=== PATIENT | female | born 1940 | race Caucasian/White ===

== ENCOUNTER → 2024-04-13 09:39 | Outpatient (REF) | payer OTHER, SELFPAY | LOC: RAD 09:39 | PROVIDERS: ATTENDING PHYSICIAN Podiatrist Foot & Ankle Surgery; FAMILY PHYSICIAN Family Medicine | DX: M20.11 Hallux valgus (acquired), right foot (principal); M20.12 Hallux valgus (acquired), left foot | CPT/HCPCS: 73630 ==

== ENCOUNTER 2024-05-29 20:18 | Inpatient (IN) | payer OTHER, SELFPAY ==
[2024-05-29] VITALS (14 sets, daily range): BP systolic 96–149; BP diastolic 49–91; BMI 41.4; BMI 42.0
[2024-05-29 11:47] LABS: % Basophils 0.3 % (0-2); % Immature Granulocytes 0.4 % (0-0.5); % Lymphocytes 3.6 % (20.5-51.1); % Monocytes 8.8 % (1.7-9.3); % Neutrophils 86.9 % (42.2-75.2); Absolute Basophils 0.1 10^3/uL (0-0.2); Absolute Immature Granulocytes 0.1 10^3/uL (0-0.05); Absolute Lymphocytes 0.6 10^3/uL (1.2-3.4); Absolute Monocytes 1.4 10^3/uL (0.1-0.6); Absolute Neutrophils 14.1 10^3/uL (1.4-6.5); Hematocrit 39.2 % (37.0-47.0); Hemoglobin 12.6 g/dL (12.0-16.0); Mean Corp Hgb Conc. 32.1 g/dL (33.0-37.0); Mean Corpuscular Hgb 29.5 pg (27.0-31.0); Mean Corpuscular Volume 91.8 fL (81.0-99.0); Nucleated Red Blood Cells % 0 %; Platelet Count 256 10^3/uL (130-400); Red Blood Cell Count 4.27 10^6/uL (4.20-5.40); Red Cell Dist. Width 12.5 % (11.5-14.5); White Blood Cell Count 16.2 10^3/uL (4.8-10.8)
[2024-05-29 11:58] LABS: APTT 27.4 Sec (23.4-35.0); INR 1.13; PT 14.5 Sec (11.4-14.6)
[2024-05-29 12:01] LABS: AST (SGOT) 22 U/L (14-36); Albumin 4.4 g/dl (3.5-5.0); Alkaline Phosphatase 65 U/L (38-126); Blood Urea Nitrogen 45 mg/dl (7-17); Calcium 9.8 mg/dl (8.4-10.2); Carbon Dioxide 18 mmol/L (22-30); Chloride 108 mmol/L (98-107); Glucose 181 mg/dl (70-99); Potassium 4.8 mmol/L (3.5-5.1); Sodium 139 mmol/L (135-145); Total Bilirubin 0.7 mg/dl (0.2-1.3); Total Protein 6.9 g/dl (6.3-8.2); eGFR 21.84
[2024-05-29 13:04] LABS: ALT (SGPT) < 30 U/L (0-35)
--- NOTE | 2024-05-29 13:18 | ED.GENMED ---
History of Present Illness
General
Chief Complaint: Rectal Bleeding
Time Seen by Provider: 05/29/24 12:49
History of Present Illness
History of Present Illness:
Patient presents to the emergency department with bright red blood per rectum. States she was up all night having bloody bowel movements. She is unsure if she was also having hematuria and she states that liquid in the toilet was all red. Denies
any urinary symptoms. Endorses left flank and abdominal pain. Denies fevers. Denies bloody vomit but did have 1 episode of emesis.
Past History
Past History
ED Past Medical History: HTN
Social History
Tobacco: Non-smoker
Living: with family
Employment: Retired
Phy Exam
Physical Exam
Physical Exam:
GENERAL APPEARANCE: NAD, well developed/ well nourished, obese
EYES lids/conjunctiva normal
EARS/NOSE/THROAT Mucous membranes moist, uvula midline without oral pharyngeal erythema, exudate or swelling
HEAD/NECK normocephalic atraumatic, neck is supple.
RESPIRATORY respiratory effort normal, speaks in full sentences, no accessory muscle use. Lungs clear to auscultation without rhonchi, wheezes, rales
CARDIAC Regular rate and rhythm, no edema.
ABDOMINAL Soft, mild tenderness to left lower quadrant/left flank area. Rectal exam with trace amounts of red blood. No vaginal bleeding no blood from urethra. tech Andrea present during exam
MUSCLES/EXTREMITIES No abnormal range of motion, no swelling.
SKIN Warm, pink and dry. No rashes
NEUROLOGICAL Speech is clear and appropriate. Normal level of consciousness. 5/5 strength in all extremities.
PSYCH Normal mood and affect. Judgement/competence is appropriate
Course
Orders/Labs/Results
Orders:
Orders
05/29/24 11:33
Type+Screen Urgent
Complete Blood Count/With Diff Urgent
Comprehensive Metabolic Panel Urgent
PT/INR [Prothrombin Time] Urgent
PTT Urgent
05/29/24 13:17
0.9% Sodium Chloride 1000 ml [Nss] 1,000 ml IV BOLUS
Straight Cath As Directed
Frequency: One time now
05/29/24 13:18
Urinalysis Reflex To Culture Urgent
05/29/24 13:33
CT Abd/pel Without Iv Or Oral Urgent
Comment:
Reason For Exam: LLQ pain, rectal bleeding
05/29/24 16:22
Ampicillin/Sulbactam 3 grams IVPB NOW Ampicillin/Sulbactam 3 G [Unasyn] 3 gm 0.9% Sodium Chloride 100 ml [Nss] 100 ml IV NOW
Abnormal Lab Results
05/29/24
11:33
WBC 16.2 H 10^3/uL
(4.8-10.8)
MCHC 32.1 L g/dL
(33.0-37.0)
Abs Immat Gran (auto) 0.1 H 10^3/uL
(0-0.05)
Absolute Neuts (auto) 14.1 H 10^3/uL
(1.4-6.5)
Absolute Lymphs (auto) 0.6 L 10^3/uL
(1.2-3.4)
Absolute Monos (auto) 1.4 H 10^3/uL
(0.1-0.6)
Neutrophils % 86.9 H %
(42.2-75.2)
Lymphocytes % 3.6 L %
(20.5-51.1)
Chloride 108 H mmol/L
(98-107)
Carbon Dioxide 18 L mmol/L
(22-30)
BUN 45 H mg/dl
(7-17)
Creatinine 2.2 H mg/dL
(0.6-1.0)
Glucose 181 H mg/dl
(70-99)
05/29/24 11:33
05/29/24 11:33
Vital Signs
Initial and Last Documented VS:
Initial Vital Signs
Temp Pulse Resp BP Pulse Ox
99.4 F 54 18 134/61 93
05/29/24 11:25 05/29/24 11:25 05/29/24 11:25 05/29/24 11:25 05/29/24 11:25
Last Documented Vital Signs
Temp Pulse Resp BP Pulse Ox
98.3 F 66 19 98/49 92
05/29/24 13:09 05/29/24 14:45 05/29/24 14:45 05/29/24 14:18 05/29/24 14:45
*Critical Care Note
Total Time (30-74mins, 75-104mins- exclusive of procedures): Not Applicable
ED Attending Note
ED Attending Note
ED Attending Note:
CT scan showing stranding and wall thickening of the colon consistent with colitis. Given patient's leukocytosis and abdominal tenderness, will treat for bacterial colitis. For BOB, IV fluids, antibiotics, lower GI bleed.
-
Portions of this chart may have been created with voice recognition software.� Occasional wrong word or��sound alike� substitutions may have occurred due to the inherent limitations of voice recognition software.
Discharge Plan
Departure
Prescriptions:
No Action
metoprolol tartrate 100 mg Tablet
200 mg PO DAILY
aspirin 81 mg Tablet,Delayed Release (Dr/Ec)
81 mg PO DAILY
triamterene-hydrochlorothiazid 37.5-25 mg Capsule
2 cap PO DAILY
acetaminophen [Tylenol 8 Hour] 650 mg Tablet Extended Release
1,300 mg PO TID
prednisolone acetate 1 % Drops,Suspension
1 drp BOTH EYES DAILY
sodium bicarbonate 650 mg Tablet
650 mg PO BID
lisinopril 10 mg Tablet
10 mg PO DAILY
verapamil 240 mg Tablet Extended Release
240 mg PO DAILY
cholecalciferol (vitamin D3) [Vitamin D3] 25 mcg (1,000 unit) Tablet
25 mcg PO DAILY
atorvastatin [Lipitor] 10 mg Tablet
10 mg PO DAILY
Referrals:
Luana Castaneda MD [Family Provider] -
Interventions
Interventions:
*ED COVID-19 Vaccine History Last Done: 05/29/24 11:28
JT-Kljsbm-Vcxvgrteei Assessment Last Done: 05/29/24 13:00
ED- Cardiac Assessment Last Done: 05/29/24 12:59
ED- Pulmonary Assessment Last Done: 05/29/24 12:59
Discharge Date and Time
Print Language: KAZAKH
[2024-05-29] MEDS: NSS 1000 IV (14:17)
[2024-05-29] MEDS: UNASYN IV (17:02)
[2024-05-29 18:23] LABS: Urine Albumin Negative (Neg - Trace); Urine Bilirubin Negative (Negative); Urine Character Clear (Clear); Urine Color Yellow; Urine Glucose Negative (Negative); Urine Ketone Trace (Negative); Urine Leukocyte 1+ (Negative); Urine Nitrite Positive (Negative); Urine Occult Blood Negative (Negative); Urine Specific Gravity 1.015 (<1.030); Urine Urobilinogen Negative (Neg - 1+)
--- NOTE | 2024-05-29 18:48 | HPS.HSE ---
Addendum entered and electronically signed by Rocio Bowman MD 05/29/24 20:45:
I personally performed a history and physical exam of the patient and discussed management with the resident. I reviewed the resident's note and agree with the documented findings and plan of care HPI/CC by Dr. Frey.
GENERAL: well developed, well nourished, morbidly obese female in no apparent distress
HEENT: NC/AT no O2 requirments
HEART: regular rate and rhythm, +S1, +S2, 2/6 ZAID
LUNGS : clear to auscultation bilaterally
ABDOM: soft, nondistended, + bowel sounds, tender to palpation left sided abdomen--no guarding or rebound
EXT: no cyanosis, clubbing, or edema
NEUROLOGIC: grossly intact
Bright red blood per rectum--likely lower GI--etiologies include colitis/diverticulitis (with pain and elevated WBC count)--less likely painless diverticular bleed--doubt food poisoning (no one else sick, ate same thing)--less likely hemorrhoids as
pain in LUQ (CT abd/pelvis 05/29: Distal transverse colon, splenic flexure and descending colon virtually completely empty, markedly limited, although suggestion of some diffuse wall thickening and some stranding suspicious for COLITIS)--ADMIT--IVF,
unasyn, check stool cultures, consult GI--agree with holding asa and avoid NSAIDs/ hold HCTZ--trend HGB
Leukocytosis--Infectious versus reactive--Check blood cultures, follow--Urinalysis with reflex to culture+ sensitivities
Hematuria-- Patient denies urinary symptoms--Urinalysis positive for nitrities with few bacteria and only 3-6 RBC/HPF and trace blood negative--await cultures--consider urology consult if needed
BOB on CKD stage IIIb---Baseline creatinine 1.46 per ECW--etiologies include volume loss/dehydration, doubt post renal causes as no hydro/stones on CT scan, bladder scan protocol--cont IVF--hold lisinopril and HCTZ--pt does see Dr. Reeves if needed
Elevated blood glucose--hx of diet controlled DM-- check RkI6o--Pdfhnwb sliding scale, Accu-Cheks
DVT prophylaxis
code status -- FULL CODE
Original Note:
Family Physician
-
Family Physician: Luana Castaneda
Chief Complaint
-
Rectal bleeding
History of Present Illness
83-year-old female with history of hypertension, hyperlipidemia, diabetes mellitus type II, lumbar degenerative disc disease, lumbar stenosis, CKD stage IIIb, who presented to the ED for bright red blood per rectum and left upper quadrant pain x 1
day. She states she was up all night with bloody bowel movements with no rectal pain. 1 episode of nonbilious nonbloody vomiting. At the time of exam, she notes that bleeding had resolved. There has been some blood in her urine even without bowel
movements. she denies fever, sweats, chills, fatigue, dizziness, or aches, dysuria, retention or other urinary symptoms. No new foods or known sick contacts. she takes aspirin 81 mg daily. Last colonoscopy was more than 5 years ago, she does not
recall any abnormalities on the test.
On arrival vitals were stable. Blood pressure recheck was 98/49. She received a bolus of normal saline in the ED, and Unasyn was started.
Medical History
Past Medical History
Past Medical History: Reports HTN, Hypercholesterolemia and Other (Prediabetes, degenerative disc disease, CKD stage IIIb, lumbar stenosis)
Past Surgical History: Reports Cholecystectomy, Orthopedic (Carpal tunnel release) and Other (Corneal transplant, cataract surgery)
Social History
Tobacco: Former Smoker (Quit 32 years ago)
Alcohol: Occasional
Drug: None
Personal:
Living: With Family
Employment: Retired
Family History
Family History: Cancer (Father had bladder cancer, brother had lung cancer) and Diabetes (Mother)
Allergies / Home Medications
Allergies reflects when Allergies were last updated in [facility].
Home Medications with original date entered in [facility]
Allergy/Medication List:
Allergies
Allergy/AdvReac Type Severity Reaction Status Date / Time
No Known Allergies Allergy Unverified 05/29/24 11:27
Home Medications
acetaminophen 650 mg tablet,extended release (Tylenol 8 Hour) 1,300 mg PO TID 05/29/24
aspirin 81 mg tablet,delayed release 81 mg PO DAILY 05/29/24
atorvastatin 10 mg tablet (Lipitor) 10 mg PO DAILY 05/29/24
cholecalciferol (vitamin D3) 25 mcg (1,000 unit) tablet (Vitamin D3) 25 mcg PO DAILY 05/29/24
lisinopril 10 mg tablet 10 mg PO DAILY 05/29/24
metoprolol tartrate 100 mg tablet 200 mg PO DAILY 05/29/24
prednisolone acetate 1 % eye drops,suspension 1 drp BOTH EYES DAILY 05/29/24
sodium bicarbonate 650 mg tablet 650 mg PO BID 05/29/24
triamterene 37.5 mg-hydrochlorothiazide 25 mg capsule 2 cap PO DAILY 05/29/24
verapamil 240 mg tablet,extended release 240 mg PO DAILY 05/29/24
Review of Systems
-
History Source: Patient
Constitutional: Denies Fever, Fatigue, Night Sweats or Chills
Cardiac: Denies Chest Pain, Diaphoresis, Palpitations or Syncope
Abdomen/GI: Reports Abdominal Pain (Left upper quadrant)
: Reports Bleeding; Denies Dysuria, Flank Pain or Difficulty Voiding
Musculoskeletal: Denies Muscle Pain or Edema
Neurological: Denies Dizzy or Headache
Hematologic/Lymphatic: Denies Bruising
Psych: Reports Calm
Physical Exam
Vital Signs
Vital Signs
Temp Pulse Resp BP Pulse Ox
98.3 F 68 22 137/83 94
05/29/24 13:09 05/29/24 17:45 05/29/24 17:45 05/29/24 17:00 05/29/24 17:45
Physical Exam
General: Well Developed, Well Nourished, No Apparent Distress, Comfortable, Conversant and Morbidly Obese; No Respiratory Distress
HEENT: NormoCephalic and Anicteric
Respiratory: Clear and Non Labored Respirations; No Wheezes, Rales, Rhonchi, Crackles or Accessory Resp Muscle Use
Cardiac: S1/S2, Regular Rhythm and Murmur (Mild systolic murmur in the right second intercostal space)
GI: Soft, Non Distended, Normal Bowel Sounds and Tender (Mild tenderness to palpation left upper quadrant)
Musculoskeletal: No Clubbing, No Cyanosis and No Edema
Skin: Warm and Dry; No Rash, Jaundice or Ulcers
Neuro: Awake, Alert and Oriented
Psych: Calm
Laboratory Results
-
05/29/24 11:33
05/29/24 11:33
Laboratory Results
PT 14.5 Sec (11.4-14.6) 05/29/24 11:33
INR 1.13 05/29/24 11:33
APTT 27.4 Sec (23.4-35.0) 05/29/24 11:33
Total Bilirubin 0.7 mg/dl (0.2-1.3) 05/29/24 11:33
AST 22 U/L (14-36) 05/29/24 11:33
ALT < 30 U/L (0-35) 05/29/24 11:33
Alkaline Phosphatase 65 U/L (38-126) 05/29/24 11:33
Impression/Plan
-
IMPRESSION: 83-year-old female with history of hypertension, hyperlipidemia, prediabetes, degenerative disc disease, CKD stage IIIb who presented with bright red blood per rectum, hematuria, and left upper quadrant pain.
Bright red blood per rectum:
Inflammatory versus infectious vs diverticulitis versus hemorrhoids
Most likely lower GI.
CT abd/pelvis 05/29: Distal transverse colon, splenic flexure and descending colon virtually completely empty, markedly limited, although suggestion of some diffuse wall thickening and some stranding suspicious for COLITIS.
Continue Unasyn
Consult GI, possible colonoscopy
-Stop aspirin given active bleed. Avoid NSAIDs
-Start PPI
-Hold hydrochlorothiazide
-Get stool cultures
Leukocytosis:
Infectious versus reactive
-Check blood cultures, follow
-Urinalysis with reflex to culture+ sensitivities
Hematuria:
Blood and urine. Patient denies urinary symptoms.
-Urinalysis with reflex to culture+ sensitivities
-Will consider urology consult with UA results
BBO on CKD stage IIIb:
-Baseline creatinine 1.46 per ECW
-Hold lisinopril
Elevated blood glucose:
-HbA1c
-Insulin sliding scale, Accu-Cheks
DVT prophylaxis: SCDs
CODE STATUS: Full code
POA: Annie coleman [phone]
[2024-05-29 18:54] LABS: Urine Bacteria Few (Negative)
[2024-05-29] MEDS: SODIUM BICARBONATE 650 MG PO (21:28)
--- NOTE | 2024-05-30 01:01 | PTCARENOTE ---
05/29/2024 - PT admitted to room 417-01 from ED @20:50. PT transferred from stretcher to bed independently. PT oriented to room, call shah, plan of care discussed. PT is AAOX3 and fully participated in admission questions. Assessment as documented.
[2024-05-30] MEDS: UNASYN IV ×2 (05:59→16:58)
--- NOTE | 2024-05-30 06:28 | W.PN.HOSP.TC ---
Addendum entered and electronically signed by Bal Nieves MD 05/30/24 14:10:
I personally performed a history and physical exam of the patient and discussed management with the resident. I reviewed the resident's note and agree with the documented findings and plan of care HPI/CC except for change in documentation
83-year-old female with bleeding per rectum
[id number]-Vek-thrombosed external hemorrhoids.Redundant colon.One 2 mm polyp in the descending colon. Stool in the ceacum.
# Rectum
Differentials include diverticular bleed, hemorrhoids, inflammatory colitis/ischemic colitis
No further bleeding.
CAT scan thickening and stranding of the colon consistent with colitis
Continue antibiotics
Diet to be advanced to full liquids
GI evaluation appreciated
Continue PPI
Stool studies if obtainable
# Leukocytosis
Follow
Cultures pending
# Hematuria
Treat as UTI and wait for cultures
# Acute kidney injury on CKD stage IIIb
Hold lisinopril and HCTZ
Follow creatinine
# Hyperkalemia-hold lisinopril. Restart hydrochlorothiazide
# Hypertension-hold lisinopril
Continue metoprolol and verapamil. HCTZ
# Hyperlipidemia-continue atorvastatin
# DJD/lumbar stenosis
# Obesity per BMI criteria
# Corneal transplants bilaterally
# Ex-smoker
# DVT prophylaxis-SCDs
# Full code
Original Note:
Today's Communication/Plan
-
Follow CBC, continue IVF, ABX
Assessment / Plan
Assessment / Plan
IMPRESSION: 83-year-old female with history of hypertension, hyperlipidemia, prediabetes, degenerative disc disease, CKD stage IIIb who presented with bright red blood per rectum, hematuria, and left upper quadrant pain.
Bright red blood per rectum:
Inflammatory versus infectious vs diverticulitis versus hemorrhoids
Most likely lower GI.
CT abd/pelvis 05/29: Distal transverse colon, splenic flexure and descending colon virtually completely empty, markedly limited, although suggestion of some diffuse wall thickening and some stranding suspicious for COLITIS.
Continue Unasyn, IVF
Consult GI, to plan outpt colonoscopy
-Stop aspirin given active bleed. Avoid NSAIDs
-Start PPI
-Hold hydrochlorothiazide
-Get stool cultures
-hgb 12.6 --> 11.0. Continue to follow
Leukocytosis:
Infectious versus reactive
improving
-Blood cultures x2 pending
- positive for nitrites, leukocyte esterace, with few bacteria and only 3-6 RBC/HPF and trace blood. Will continue Unasyn, awaiting culture+ sensitivities
Hematuria:
Blood and urine. Patient denies urinary symptoms.
-Urinalysis 05/29: positive for nitrities, leukocyte esterace, with few bacteria and only 3-6 RBC/HPF and trace blood.
-Urine cx pending
-Will consider urology consult
BOB on CKD stage IIIb:
-Baseline creatinine 1.46 per ECW
-IVF, hold lisinopril and HTCZ, avoid NSAIDs
-Continue sodium bicarb
-Followed by Dr. Kaba, nephrology
Hyperkalemia:
-Correct
Elevated blood glucose:
-HbA1c 5.8
-Insulin sliding scale, Accu-Cheks
Essential hypertension:
-Hold hydrochlorothiazide and lisinopril given BOB
-Continue metoprolol and verapamil with holding parameters
Hyperlipidemia:
-Continue atorvastatin
Degenerative disc disease
Lumbar stenosis
DVT prophylaxis: SCDs
CODE STATUS: Full code
POA: Annie coleman [phone]
Anticipated Discharge: Within 24 hours
Subjective/Interval History
-
Date of Service: May 30, 2024
No acute overnight events
Objective Data
-
Labs:
Laboratory Results
05/30/24
06:00
WBC Pending
Hgb Pending
Hct Pending
Plt Count Pending
Sodium Pending
Potassium Pending
Chloride Pending
Carbon Dioxide Pending
BUN Pending
Creatinine Pending
Glucose Pending
Calcium Pending
Vital Signs:
Vital Signs
Temp Pulse Resp BP Pulse Ox
98.0 F 75 20 147/57 95
05/29/24 23:14 05/29/24 23:14 05/29/24 23:14 05/29/24 23:14 05/29/24 23:14
I&O
05/28/24 05/29/24 05/30/24
06:59 06:59 06:59
Intake Total 360 / 360
Balance 360 / 360
Review of Systems
-
History Source: Patient
Constitutional: Reports No Symptoms
Respiratory: Reports No Symptoms; Denies Cough or Trouble Breathing
Cardiac: Reports No Symptoms; Denies Chest Pain, Diaphoresis or Palpitations
Abdomen/GI: Reports Abdominal Pain (Left-sided)
Genitourinary: Reports No Symptoms; Denies Dysuria, Flank Pain, Difficulty Voiding or Bleeding
Neuro: Denies Dizzy or Headache
Hematologic / Lymphatic: Denies Bleeding
Physical Exam
-
General: Well Developed, Well Nourished, No Apparent Distress, Comfortable and Conversant
HEENT: Normocephalic and Atraumatic
Respiratory: Clear to Auscultation and Non Labored Respirations; Negative Wheezes, Rales, Rhonchi or Crackles
Cardiac: Regular Rhythm and S1/S2; Negative Murmur, Rub, Calf Tenderness or Torres's Sign
GI: Soft, Nondistended, Normal Bowel Sounds and Tender (Mild tenderness in left upper and lower quadrants)
Genito-urinary: Other (No suprapubic tenderness/fullness); Negative Costovertebral Angle Tend
Musculoskeletal: No Clubbing, No Cyanosis and No Edema
Skin: Warm and Dry; Negative Ulcers or Lesions
Neuro: Awake, Alert and Oriented
Psych: Calm
[2024-05-30 07:26] VITALS: BP 152/69
[2024-05-30 07:40] LABS: Hematocrit 34.6 % (37.0-47.0); Mean Corp Hgb Conc. 31.8 g/dL (33.0-37.0); Mean Corpuscular Hgb 29.4 pg (27.0-31.0); Mean Corpuscular Volume 92.5 fL (81.0-99.0); Mean Platelet Volume 9.8 fL (7.4-10.4); Platelet Count 197 10^3/uL (130-400); Red Blood Cell Count 3.74 10^6/uL (4.20-5.40); Red Cell Dist. Width 12.7 % (11.5-14.5); White Blood Cell Count 12.6 10^3/uL (4.8-10.8)
[2024-05-30 07:52] LABS: Blood Urea Nitrogen 39 mg/dl (7-17); Calcium 9.6 mg/dl (8.4-10.2); Carbon Dioxide 23 mmol/L (22-30); Chloride 108 mmol/L (98-107); Estimated Creatinine Clearance 32 ml/min; Glucose 121 mg/dl (70-99); Potassium 5.6 mmol/L (3.5-5.1); Sodium 140 mmol/L (135-145)
--- NOTE | 2024-05-30 08:23 | CON.GI ---
Consultation
-
Date/Time Consultation Performed: 05/30/24
Performing Provider: Collin Crow MD
Reason for Consultation: rectal bleeding
Medical History
Chief Complaint / HPI
Chief Complaint: Rectal bleeding
History of Present Illness:
The patient is an 83-year-old female past medical history as noted presents with rectal bleeding. She was in her usual state of health until yesterday when she noticed bright red blood per rectum. She describes this as bloody stool, more maroon,
possibly with some clots. Initially she did not notice much pain, she does have tenderness yesterday. She denies any lightheadedness, dizziness, fever or chills. Denies any sick contacts, recent antibiotics or other new medications. She never
had bleeding like this before and usually doing very well with really no significant GI issues. Her last colonoscopy was in 2010 which was essentially unremarkable. She is feeling better today, with 1 episode overnight, though less frequent. She
has otherwise been doing well medically with no other significant medical issues.
Past Medical History
Past Medical History: Other (HTN, Hypercholesterolemia, Prediabetes, degenerative disc disease, CKD stage IIIb, lumbar stenosis)
Past Surgical History: Cholecystectomy
Social History
Tobacco: Former Smoker
Alcohol: Occasional
Family History
Family History: Reviewed & Not Pertinent
Allergies / Home Medications
Allergy/AdvReac Type Severity Reaction Status Date / Time
No Known Allergies Allergy Unverified 05/29/24 11:27
�Medication �Instructions �Recorded
acetaminophen 650 mg 1,300 mg PO TID 05/29/24
tablet,extended release (Tylenol 8
Hour)
aspirin 81 mg tablet,delayed 81 mg PO DAILY 05/29/24
release
atorvastatin 10 mg tablet (Lipitor) 10 mg PO DAILY 05/29/24
cholecalciferol (vitamin D3) 25 25 mcg PO DAILY 05/29/24
mcg (1,000 unit) tablet (Vitamin
D3)
lisinopril 10 mg tablet 10 mg PO DAILY 05/29/24
metoprolol tartrate 100 mg tablet 200 mg PO DAILY 05/29/24
prednisolone acetate 1 % eye 1 drp BOTH EYES DAILY 05/29/24
drops,suspension
sodium bicarbonate 650 mg tablet 650 mg PO BID 05/29/24
triamterene 37.5 2 cap PO DAILY 05/29/24
mg-hydrochlorothiazide 25 mg
capsule
verapamil 240 mg tablet,extended 240 mg PO DAILY 05/29/24
release
Review of Systems
-
All other systems: A 12 pt ROS was Negative except as stated above in HPI
Vital Signs
Temp Pulse Resp BP Pulse Ox
98.0 F 75 20 147/57 95
05/29/24 23:14 05/29/24 23:14 05/29/24 23:14 05/29/24 23:14 05/29/24 23:14
Physical Exam
Exam
General: NAD
HEENT: MMM, anicteric, no lymphadenopathy
Heart: Regular, no murmurs
Lungs: CTA bilaterally
Abdomen: normal bowel sounds, soft, minimal left sided tenderness, no rebound or guarding, no masses, bruits or ascites
Extremeties: no edema
Skin: no rashes
Results
WBC 12.6 10^3/uL (4.8-10.8) H 05/30/24 07:26
Hgb 11.0 g/dL (12.0-16.0) L 05/30/24 07:26
Hct 34.6 % (37.0-47.0) L 05/30/24 07:26
MCV 92.5 fL (81.0-99.0) 05/30/24 07:26
Plt Count 197 10^3/uL (130-400) D 05/30/24 07:26
Absolute Neuts (auto) 14.1 10^3/uL (1.4-6.5) H 07/03/24 11:33
PT 14.5 Sec (11.4-14.6) 05/29/24 11:33
INR 1.13 05/29/24 11:33
APTT 27.4 Sec (23.4-35.0) 05/29/24 11:33
Sodium 140 mmol/L (135-145) 05/30/24 07:26
Potassium 5.6 mmol/L (3.5-5.1) H 05/30/24 07:26
Chloride 108 mmol/L (98-107) H 05/30/24 07:26
Carbon Dioxide 23 mmol/L (22-30) 05/30/24 07:26
BUN 39 mg/dl (7-17) H 05/30/24 07:26
Creatinine 1.6 mg/dL (0.6-1.0) H 05/30/24 07:26
Calcium 9.6 mg/dl (8.4-10.2) 05/30/24 07:26
Total Bilirubin 0.7 mg/dl (0.2-1.3) 05/29/24 11:33
AST 22 U/L (14-36) 05/29/24 11:33
ALT < 30 U/L (0-35) 05/29/24 11:33
Alkaline Phosphatase 65 U/L (38-126) 05/29/24 11:33
Diagnostic Image Results:
CT:
IMPRESSION:
Markedly limited evaluation of intestinal tract without oral or intravenous contrast, without intestinal obstruction or free air.
Distal transverse colon, splenic flexure and descending colon virtually completely empty, markedly limited, although suggestion of some diffuse wall thickening and some stranding suspicious for COLITIS.
Small hiatal hernia.
Prior cholecystectomy.
Prior GI Procedures:
EGD:
Colonoscopy:
2011:
Impression: - Non-thrombosed external hemorrhoids.
- Redundant colon.
- One 2 mm polyp in the descending colon. This was
biopsied.
- Stool cecum.
Assessment / Plan
-
1. GI bleed: Likely more secondary to colitis, possibly watershed ischemic colitis given location seen on CT scan, tenderness on exam and symptoms. Diverticular bleed is also possible, though seems a bit less likely given her symptoms. Other
reasons for colitis including infectious, inflammatory bowel disease, as well as other etiologies such as malignancy etc. seem unlikely. At this point if she has further diarrhea we will check stool studies, will advance to full liquid diet today
and continue observation. Assuming she continues to improve we will plan outpatient colonoscopy in 6 to 8 weeks.
-
-
Thank you for consultation and allowing me to participate in the patient's care. Please call the landscape contractor GI physician during the after hours with any questions or concerns.
[2024-05-30 08:36] LABS: Glucose - Point of Care 118 mg/dl (70-99)
[2024-05-30] MEDS: NSS 1000 IV ×2 (08:38→19:36)
[2024-05-30] MEDS: LOPRESSOR 200 MG PO (08:44)
[2024-05-30] MEDS: PROTONIX 40 MG PO (08:44)
[2024-05-30] MEDS: VITAMIN D3 (cholecalciferol) 25 MCG PO (08:45)
[2024-05-30] MEDS: LIPITOR 10 MG PO (08:45)
[2024-05-30] MEDS: CALAN EXTENDED RELEASE 240 MG PO (08:45)
[2024-05-30] MEDS: SODIUM BICARBONATE 650 MG PO ×2 (08:45→19:36)
[2024-05-30] MEDS: PRED FORTE 1% EYE DROPS 1 DROP BOTH EYES (08:45)
[2024-05-30 09:26] LABS: Glycohemoglobin (HgbA1c) 5.8 % (4.0-5.6)
[2024-05-30 09:30] LABS: Magnesium 1.9 mg/dl (1.6-2.3)
[2024-05-30] MEDS: LOKELMA 5 GRAM PO (11:26)
[2024-05-30 12:54] LABS: Glucose - Point of Care 129 mg/dl (70-99)
[2024-05-30 15:17] VITALS: BP 122/63
[2024-05-30 16:50] LABS: Glucose - Point of Care 123 mg/dl (70-99)
[2024-05-30 21:16] LABS: Glucose - Point of Care 129 mg/dl (70-99)
[2024-05-30 23:22] VITALS: BP 132/60
[2024-05-31] MEDS: NSS 1000 IV (05:12)
[2024-05-31] MEDS: UNASYN IV ×2 (05:12→17:01)
[2024-05-31 06:49] LABS: Hematocrit 32.3 % (37.0-47.0); Hemoglobin 10.3 g/dL (12.0-16.0); Mean Corp Hgb Conc. 31.9 g/dL (33.0-37.0); Mean Corpuscular Hgb 29.9 pg (27.0-31.0); Mean Corpuscular Volume 93.9 fL (81.0-99.0); Mean Platelet Volume 9.9 fL (7.4-10.4); Platelet Count 182 10^3/uL (130-400); Red Blood Cell Count 3.44 10^6/uL (4.20-5.40); Red Cell Dist. Width 12.5 % (11.5-14.5); White Blood Cell Count 8.9 10^3/uL (4.8-10.8)
[2024-05-31 07:00] VITALS: BP 131/57
[2024-05-31 07:17] LABS: Blood Urea Nitrogen 27 mg/dl (7-17); Calcium 9.2 mg/dl (8.4-10.2); Carbon Dioxide 23 mmol/L (22-30); Chloride 109 mmol/L (98-107); Estimated Creatinine Clearance 36 ml/min; Glucose 97 mg/dl (70-99); Potassium 4.8 mmol/L (3.5-5.1); Sodium 141 mmol/L (135-145); eGFR 37.56
[2024-05-31 07:18] LABS: Glucose - Point of Care 105 mg/dl (70-99)
--- NOTE | 2024-05-31 08:01 | W.PN.HOSP.TC ---
Addendum entered and electronically signed by Bal Nieves MD 05/31/24 13:51:
I personally performed a history and physical exam of the patient and discussed management with the resident. I reviewed the resident's note and agree with the documented findings and plan of care HPI/CC except for change in documentation
83-year-old female with bleeding per rectum
[id number]-thrombosed external hemorrhoids.Redundant colon.One 2 mm polyp in the descending colon. Stool in the ceacum.
#Bleeding per Rectum
Differentials include diverticular bleed, hemorrhoids, inflammatory colitis/ischemic colitis
No further bleeding. Had small BMS
CAT scan thickening and stranding of the colon consistent with colitis
Continue antibiotics
Diet to be advanced to LRD
GI following
Continue PPI
# Leukocytosis-Resolved
Likely from UTI
# Hematuria
E Coli UTI
Urine now clear
# Acute kidney injury on CKD stage IIIb
Hold lisinopril
Follow creatinine
# Hyperkalemia-hold lisinopril. Restarted hydrochlorothiazide
# Hypertension-hold lisinopril.Continue metoprolol and verapamil. HCTZ
# Hyperlipidemia-continue atorvastatin
# DJD/lumbar stenosis
# Obesity per BMI criteria
# Corneal transplants bilaterally
# Ex-smoker
# DVT prophylaxis-SCDs
# Full code
D/W RN
D/W GI
Tried calling , number is wrong.
Original Note:
Today's Communication/Plan
-
Stool cultures, continue IV ABX,
Assessment / Plan
Assessment / Plan
IMPRESSION: 83-year-old female with history of hypertension, hyperlipidemia, prediabetes, degenerative disc disease, CKD stage IIIb who presented with bright red blood per rectum, hematuria, and left upper quadrant pain.
Bright red blood per rectum:
Inflammatory versus infectious vs diverticulitis versus hemorrhoids
Most likely lower GI. No further bleeding
CT abd/pelvis 05/29: Distal transverse colon, splenic flexure and descending colon virtually completely empty, markedly limited, although suggestion of some diffuse wall thickening and some stranding suspicious for COLITIS.
Continue Unasyn, IVF
-Appreciate GI input: possible colonoscopy
-Aspirin stopped given active bleed. Avoid NSAIDs
-PPI
-hydrochlorothiazide held
Giardia, C. difficile negative
-Will get stool cultures
-hgb 12.6 --> 11.0 -->10.3 Continue to follow
Leukocytosis:
Infectious versus reactive
resolved
-Blood cultures x2: No growth in 24 hours
-Urinalysis positive for nitrites, leukocyte esterace, with few bacteria and only 3-6 RBC/HPF and trace blood. Urine cultures: Gram-negative bacilli. Will continue Unasyn
Hematuria:
Blood and urine. Patient denies urinary symptoms. No further bleeding at this time
-Urinalysis 05/29: positive for nitrities, leukocyte esterace, with few bacteria and only 3-6 RBC/HPF and trace blood. Urine cultures: Gram-negative bacilli. Will continue Unasyn
-Urine cx pending
-Will consider urology consult
BOB on CKD stage IIIb:
-Baseline creatinine 1.46 per ECW
-IVF, hold lisinopril and HTCZ, avoid NSAIDs
-Continue sodium bicarb
-Followed by Dr. Kaba, nephrology
Hyperkalemia:
-Corrected
Elevated blood glucose:
-HbA1c 5.8
-Insulin sliding scale, Accu-Cheks
Essential hypertension:
-Hold hydrochlorothiazide and lisinopril given BOB
-Continue metoprolol and verapamil with holding parameters
Hyperlipidemia:
-Continue atorvastatin
Degenerative disc disease
Lumbar stenosis
DVT prophylaxis: SCDs
CODE STATUS: Full code
POA: Annie good [phone]
Anticipated Discharge: 24 - 48 hours
Subjective/Interval History
-
Date of Service: May 31, 2024
Episode of BRBPR last night. Pt is unsure of hematuria vs rectal bleeding alone
Objective Data
-
Labs:
Laboratory Results
05/31/24
06:11
WBC 8.9
Hgb 10.3 L
Hct 32.3 L
Plt Count 182
Sodium 141
Potassium 4.8
Chloride 109 H
Carbon Dioxide 23
BUN 27 H
Creatinine 1.4 H
Glucose 97
Calcium 9.2
Vital Signs:
Vital Signs
Temp Pulse Resp BP Pulse Ox
98.0 F 74 18 132/60 96
05/30/24 23:22 05/30/24 23:22 05/30/24 23:22 05/30/24 23:22 05/30/24 23:22
I&O
05/30/24 05/31/24 06/01/24
06:59 06:59 06:59
Intake Total 360 / 360 2280 / 2280
Balance 360 / 360 2280 / 2280
Review of Systems
-
History Source: Patient
Constitutional: Denies Fever, Fatigue or Chills
Respiratory: Denies Cough or Trouble Breathing
Cardiac: Denies Chest Pain, Diaphoresis, Palpitations or Syncope
Abdomen/GI: Reports No Symptoms and Bloody Stools; Denies Abdominal Pain, Nausea or Vomiting
Breast: Reports No Symptoms
Genitourinary: Reports Bleeding (Unsure of blood in urine); Denies Dysuria or Difficulty Voiding
Neuro: Denies Dizzy or Headache
Hematologic / Lymphatic: Reports Bleeding
Physical Exam
-
General: Well Developed, Well Nourished, No Apparent Distress and Comfortable
HEENT: Normocephalic, Atraumatic, Moist Mucous Membranes and Anicteric
Respiratory: Clear to Auscultation and Non Labored Respirations; Negative Wheezes, Rales, Rhonchi or Crackles
Cardiac: Regular Rhythm and S1/S2; Negative Murmur, Rub or Calf Tenderness
GI: Soft, Nontender, Nondistended and Normal Bowel Sounds
Musculoskeletal: No Clubbing, No Cyanosis and No Edema
Skin: Warm and Dry
Neuro: Awake, Alert and Oriented
Psych: Calm
[2024-05-31] MEDS: PRED FORTE 1% EYE DROPS 1 DROP BOTH EYES (08:50)
[2024-05-31] MEDS: LOPRESSOR 200 MG PO (08:50)
[2024-05-31] MEDS: SODIUM BICARBONATE 650 MG PO ×2 (08:51→20:26)
[2024-05-31] MEDS: PROTONIX 40 MG PO (08:51)
[2024-05-31] MEDS: CALAN EXTENDED RELEASE 240 MG PO (08:51)
[2024-05-31] MEDS: VITAMIN D3 (cholecalciferol) 25 MCG PO (08:51)
[2024-05-31] MEDS: LIPITOR 10 MG PO (08:51)
--- NOTE | 2024-05-31 11:14 | W.PN.GI.CBS2 ---
Addendum entered and electronically signed by Laila Oliva MD 05/31/24 18:08:
I saw and examined the patient.
The GLASSIE or PA's note was reviewed and I agree with the note.
Comment: Patient denies any abdominal pain,Small bowel movement without any blood. No fevers or chills.
Stool for C. difficile, Cryptosporidium and Giardia negative, cultures pending
Okay to advance to full liquid diet and advance to low residue as tolerated
Monitor H&H
Continue antibiotics
Outpatient colonoscopy in 6 weeks
Original Note:
Today's Communication / Plan
-
Advance diet low res/low lactose. Abx as per medicine team. She will need follow-up OP to arrange for colonoscopy in 6-8 weeks. Follow stool culture
Assessment / Plan
-
The pt is an 83 yo female with a PMH significant for HTN, prediabetes, HLD, lumbar disc disease/stenosis, CKD stage III, prior CCY, who presented to the ER with complaints of rectal bleeding found to have colitis on CT, concerning for possible
ischemic colitis with watershed pattern. Possibly infectious v inflammatory v other (malignancy). Her hgb was stable on admission, with mild drop 12.6--> 11.0--> 10.3. She has had no further bleeding. She was started on Unasyn. Also with E coli in
her urine. She was placed on liquid diet which she has been tolerating. Last colonoscopy in 2010. Stools negative for Cdiff, giardia, crypto. Stool culture is pending. Leukocytosis has resolved.
Problem list:
-abdominal pain, improved
-rectal bleeding; CT showing colitis distal transverse, splenic flexure, and descending colon
-leukocytosis, resolved
-UTI, UC + E coli.
-BOB on CKD
-mild normocytic anemia, likely 2/2 acute blood loss
-hyperkalemia, resolved
Other pertinent medical hx:
-HTN
-Prediabetes
-HLD
-DDD, lumbar stenosis
Recommendations:
-Etiology of colitis possibly infectious v ischemic v inflammatory v other. With watershed pattern suggestive of possible ischemic colitis on CT but improved symptoms. On Unasyn with UTI as well.
-Will advance her diet to low residue/low lactose
-She will need an eventual colonoscopy outpatient in 6-8 weeks for further evaluation
-Follow stool culture. Ciff, giardia, crypto negative
-On abx with Unasyn
-Monitor for recurrent diarrhea/bleeding
-If she is tolerating her diet with no further pain/bleeding likely ok for discharge from GI standpoint in AM
-Management of UTI per medicine team
-Will follow
Subjective
Subjective
Date of Service: May 31, 2024
The pt was seen and examined at the bedside. She has no further abdominal pain. There has been no further rectal bleeding. She had a mild drop of her hgb 11.0-->10.3 but overall stable. Cdiff, giardia, and crypto are negative. Stool culture is
pending. NTD. UC showing E coli. She is on Unasyn. Leukocytosis has resolved. BOB is improving. She is tolerating full liquid diet.
Objective
Data Reviewed
Laboratory Data:
Laboratory Results
05/31/24 06:11
05/31/24 06:11
Laboratory Results
PT 14.5 Sec (11.4-14.6) 05/29/24 11:33
INR 1.13 05/29/24 11:33
APTT 27.4 Sec (23.4-35.0) 05/29/24 11:33
Magnesium 1.9 mg/dl (1.6-2.3) 05/30/24 07:26
Total Bilirubin 0.7 mg/dl (0.2-1.3) 05/29/24 11:33
AST 22 U/L (14-36) 05/29/24 11:33
ALT < 30 U/L (0-35) 05/29/24 11:33
Alkaline Phosphatase 65 U/L (38-126) 05/29/24 11:33
Vital Signs and I&O:
Vital Signs
Temp Pulse Resp BP Pulse Ox
97.9 F 67 18 137/57 92
05/31/24 07:00 05/31/24 08:50 05/31/24 07:00 05/31/24 08:50 05/31/24 07:00
I&O
05/30/24 05/31/24 06/01/24
06:59 06:59 06:59
Intake Total 360 / 360 2280 / 2280
Balance 360 / 360 2280 / 2280
Physical Exam
Physical Exam
HEENT: Anicteric
Cardiology: S1 and S2 (RRR)
Pulmonary: Clear
GI: Soft, Non Distended, Non Tender, Normal Bowel Sounds and Other (obese abdomen)
Extremities: No Edema
Neuro: Non Focal
[2024-05-31 11:42] LABS: Glucose - Point of Care 146 mg/dl (70-99)
[2024-05-31] MEDS: NSS IV (12:37)
[2024-05-31 15:00] VITALS: BP 121/56
--- NOTE | 2024-05-31 15:17 | PN.CDI ---
CDI
- -
CDI:
Physician Documentation Request
Admit Date: 05/29/24 20:18
Dear Doctor Shante,
Patient admitted with rectal bleeding.
Hgb documented below:
Laboratory Tests
05/29/24 05/30/24 05/31/24
11:33 07:26 06:11
Hgb 12.6 11.0 L 10.3 L
Based on the above, please clarify in your note the diagnosis you are evaluating, monitoring and/or treating?
Acute blood loss anemia
Insignificant abnormal lab findings
Other
Use of terms such as suspected, likely, concern for, or probable (associated with a specific diagnosis that is being evaluated, monitored, or treated as if it exists) are acceptable and can be coded in the inpatient setting, when documented at the
time of discharge.
Thank you,
Tootie BECKFORD,RN,CCDS
CDI Specialist
Available via [place] text
Please use your independent medical judgment in providing your response.
[2024-05-31] MEDS: DYAZIDE 2 CAPSULE PO (15:29)
--- NOTE | 2024-05-31 16:39 | W.DCSUMMARY ---
Documented by User: Dea Frey MD, Resident 06/01/24 12:17
Discharge Summary
Discharge Data
Date of Admission: 05/29/24
Date of Discharge: 06/01/24
-
Pending Results: No
Additional Pending Results:
Salmonella/Shigella, Campylobacter cultures, Shiga toxin test pending
Hospital Course
Discharging physician: Bal Nieves MD, Dea Frey MD
Disposition: Home
Primary care physician: Luana Castaneda MD
Primary discharge diagnosis: Rectal bleeding, hematuria, colitis, acute kidney injury
Chronic discharge diagnoses: CKD stage IIIb, prediabetes, essential hypertension, hyperlipidemia, degenerative disc disease/lumbar stenosis
Hospital course:
84-year-old female with history of hypertension, hyperlipidemia, prediabetes, degenerative disc disease/lumbar stenosis, CKD stage IIIb, who presented to ED on 05/29 complaining of bright red blood per rectum overnight. She also complained of
bloody of possible hematuria although she was unable to certainly distinguish due to bowel movement and urination at the same time. She had no prior history of rectal bleeding and was on no blood thinners. She had mild left upper and lower
quadrant abdominal pain but denied nausea, vomiting, fever or dysuria. Upon arrival to the ED, SpO2 was 93% on room air, other vitals were stable, + leukocytosis. She was given IV bolus fluids, and started on Unasyn. CT was suspicious for
colitis. Creatinine on presentation was 2.2.
Urinalysis showed UTI, cultures grew E. coli. Hydrochlorothiazide and aspirin were held due to BOB.
Stool studies were negative for C. difficile, Cryptosporidium or Giardia antigens. Salmonella/Shigella cultures Campylobacter, Shiga toxin test pending
Blood cultures were negative.
Bleeding stopped, and hemoglobin stabilized at 11.6 by discharge.
Creatinine improved to 1.2 at discharge
Unasyn was continued throughout stay. Patient will be discharged on oral Augmentin to complete 7-day course to end on 06/04
She will need an eventual colonoscopy outpatient in 6-8 weeks for further evaluation. Follow up with gastroenterology
Follow-up with PCP within 2 weeks of discharge, with repeat urinalysis and BMP in 2-3 weeks
Relevant data:
CT abdomen and pelvis 06/01: Markedly limited evaluation of intestinal tract without oral or intravenous contrast, without intestinal obstruction or free air. Distal transverse colon, splenic flexure and descending colon virtually completely empty,
markedly limited, although suggestion of some diffuse wall thickening and some stranding suspicious for COLITIS. Small hiatal hernia. Prior cholecystectomy.
Consults: Gastroenterology, Devaughn Crow MD
Discharge Plan
-
Patient Disposition: Home (Routine Discharge)
Discharge Diagnosis/Procedures: Acute kidney injury, colitis
Diet: 2 Gram Sodium
Referrals:
Devaughn Crow MD [Active] -
Luana Castaneda MD [Family Provider] -
Additional Discharge Medication Instructions: Augmentin for 3 days starting 06/02 to end on 06/04
Prescriptions:
New
amoxicillin-pot clavulanate 875-125 mg tablet
1 tab PO BID 3 Days Qty: 6 0RF
Continued
metoprolol tartrate 100 mg Tablet
200 mg PO DAILY
acetaminophen [Tylenol 8 Hour] 650 mg Tablet Extended Release
1,300 mg PO TID
prednisolone acetate 1 % Drops,Suspension
1 drp BOTH EYES DAILY
sodium bicarbonate 650 mg Tablet
650 mg PO BID
lisinopril 10 mg Tablet
10 mg PO DAILY
verapamil 240 mg Tablet Extended Release
240 mg PO DAILY
cholecalciferol (vitamin D3) [Vitamin D3] 25 mcg (1,000 unit) Tablet
25 mcg PO DAILY
atorvastatin [Lipitor] 10 mg Tablet
10 mg PO DAILY
Held
aspirin 81 mg Tablet,Delayed Release (Dr/Ec)
81 mg PO DAILY
Hold Instructions: Held for BOB and GI bleed. Hold until seen by PCP in 2 to 3 weeks
triamterene-hydrochlorothiazid 37.5-25 mg Capsule
2 cap PO DAILY
Hold Instructions: Held for acute kidney injury. Hold until seen by PCP and repeat BMP
Discharge Orders:
Discharge Patient (As Directed); Ordered 06/01/24
Ordered By: Dea Frey
Discharge Date and Time
Print Language: ARMENIAN

Documented by User: Bal Nieves MD 06/01/24 13:32
Discharge Summary
Discharge Data
Date of Admission: 05/29/24
Date of Discharge: 06/01/24
Discharge Plan
-
Patient Disposition: Home (Routine Discharge)
Discharge Diagnosis/Procedures: Acute kidney injury, colitis
Diet: 2 Gram Sodium
Referrals:
Devaughn Crow MD [Active] -
Luana Castaneda MD [Family Provider] -
Additional Discharge Medication Instructions: Augmentin for 3 days starting 06/02 to end on 06/04
Prescriptions:
New
amoxicillin-pot clavulanate 875-125 mg tablet
1 tab PO BID 3 Days Qty: 6 0RF
Continued
metoprolol tartrate 100 mg Tablet
200 mg PO DAILY
acetaminophen [Tylenol 8 Hour] 650 mg Tablet Extended Release
1,300 mg PO TID
prednisolone acetate 1 % Drops,Suspension
1 drp BOTH EYES DAILY
sodium bicarbonate 650 mg Tablet
650 mg PO BID
lisinopril 10 mg Tablet
10 mg PO DAILY
verapamil 240 mg Tablet Extended Release
240 mg PO DAILY
cholecalciferol (vitamin D3) [Vitamin D3] 25 mcg (1,000 unit) Tablet
25 mcg PO DAILY
atorvastatin [Lipitor] 10 mg Tablet
10 mg PO DAILY
Held
aspirin 81 mg Tablet,Delayed Release (Dr/Ec)
81 mg PO DAILY
Hold Instructions: Held for BOB and GI bleed. Hold until seen by PCP in 2 to 3 weeks
triamterene-hydrochlorothiazid 37.5-25 mg Capsule
2 cap PO DAILY
Hold Instructions: Held for acute kidney injury. Hold until seen by PCP and repeat BMP
Discharge Orders:
Discharge Patient (As Directed); Ordered 06/01/24
Ordered By: Dea Frey
Discharge Date and Time
Print Language: ARMENIAN
[2024-05-31 16:51] LABS: Glucose - Point of Care 141 mg/dl (70-99)
--- NOTE | 2024-05-31 17:46 | W.PN.UPDATE ---
Addendum entered and electronically signed by Yunior Aquino MD 06/01/24 11:18:
entered in error - please delete
Original Note:
Update Note
Progress Note Update
Patient request to leave against medical vice. Risks of leaving AGAINST MEDICAL ADVICE not excluding aspiration, recurrence of bleeding, were explained and patient verbally agreed. Patient reiterated understanding of risks. Patient still
desired to leave AMA.
[2024-05-31 21:29] LABS: Glucose - Point of Care 102 mg/dl (70-99)
[2024-05-31 23:00] VITALS: BP 142/54
[2024-06-01] MEDS: UNASYN IV ×2 (06:04→12:50)
[2024-06-01 07:34] LABS: Glucose - Point of Care 93 mg/dl (70-99)
[2024-06-01 08:00] VITALS: BP 134/66
[2024-06-01] MEDS: LIPITOR 10 MG PO (08:06)
[2024-06-01] MEDS: CALAN EXTENDED RELEASE 240 MG PO (08:06)
[2024-06-01] MEDS: DYAZIDE 2 CAPSULE PO (08:06)
[2024-06-01] MEDS: PROTONIX 40 MG PO (08:06)
[2024-06-01] MEDS: PRED FORTE 1% EYE DROPS 1 DROP BOTH EYES (08:06)
[2024-06-01] MEDS: VITAMIN D3 (cholecalciferol) 25 MCG PO (08:06)
[2024-06-01] MEDS: SODIUM BICARBONATE 650 MG PO (08:06)
[2024-06-01] MEDS: LOPRESSOR 200 MG PO (08:06)
--- NOTE | 2024-06-01 09:13 | W.PN.HOSP.TC ---
Addendum entered and electronically signed by Bal Nieves MD 06/01/24 13:34:
Seen and examined the patient with resident earlier today. Exam with assessment plan made together.
Patient was feeling much better and anxious to go home. She tolerated diet
Abdomen exam benign
Okay for discharge.
Original Note:
Today's Communication/Plan
-
Discharge planning
Assessment / Plan
Assessment / Plan
IMPRESSION: 83-year-old female with history of hypertension, hyperlipidemia, prediabetes, degenerative disc disease, CKD stage IIIb who presented with bright red blood per rectum, hematuria, and left upper quadrant pain.
Bright red blood per rectum:
Inflammatory versus infectious vs diverticulitis versus hemorrhoids
CT abd/pelvis 05/29: Distal transverse colon, splenic flexure and descending colon virtually completely empty, markedly limited, although suggestion of some diffuse wall thickening and some stranding suspicious for COLITIS.
Bleeding Resolved
Continue Unasyn, IVF
-Appreciate GI input: possible colonoscopy
-Aspirin stopped given active bleed. Avoid NSAIDs
-PPI
-hydrochlorothiazide held
Giardia, C. difficile negative. Other stool cultures pending
-hgb 12.6 --> 11.0 -->10.3 -->11.6. Continue to follow
-Tolerating low-res diet, will advance
Leukocytosis:
Infectious versus reactive
resolved
-Blood cultures x2: No growth i today
-Urinalysis positive for nitrites, leukocyte esterace, with few bacteria and only 3-6 RBC/HPF and trace blood. Urine cultures: Gram-negative bacilli. Will continue Unasyn
Hematuria:
Blood and urine. Patient denies urinary symptoms. No further bleeding at this time
-Urinalysis 05/29: positive for nitrities, leukocyte esterace, with few bacteria and only 3-6 RBC/HPF and trace blood. Urine cultures: E. coli growth. Will continue Unasyn
BOB on CKD stage IIIb:
-Baseline creatinine 1.46 per ECW
-IVF, hold lisinopril and HTCZ, avoid NSAIDs
-Continue sodium bicarb
-Followed by Dr. Kaba, nephrology
Hyperkalemia:
-Corrected
Elevated blood glucose:
-HbA1c 5.8
-Insulin sliding scale, Accu-Cheks
Essential hypertension:
-Hold hydrochlorothiazide and lisinopril given BOB
-Continue metoprolol and verapamil with holding parameters
Hyperlipidemia:
-Continue atorvastatin
Degenerative disc disease
Lumbar stenosis
DVT prophylaxis: SCDs
CODE STATUS: Full code
POA: Annie coleman [phone]
Anticipated Discharge: Today
Subjective/Interval History
-
Date of Service: June 01, 2024
Patient requested to leave A last night, but did not after risks were explained. No symptoms today. No reported rectal or urinary bleeding. Patient is eager to go home
Objective Data
-
Labs:
Laboratory Results
06/01/24
08:32
WBC Pending
Hgb Pending
Hct Pending
Plt Count Pending
Sodium Pending
Potassium Pending
Chloride Pending
Carbon Dioxide Pending
BUN Pending
Creatinine Pending
Glucose Pending
Calcium Pending
Vital Signs:
Vital Signs
Temp Pulse Resp BP Pulse Ox
98.3 F 63 18 134/66 92
06/01/24 08:00 06/01/24 08:00 06/01/24 08:00 06/01/24 08:00 06/01/24 08:00
I&O
05/31/24 06/01/24 06/02/24
06:59 06:59 06:59
Intake Total 2280 / 2280 1040 / 1040
Balance 2280 / 2280 1040 / 1040
Review of Systems
-
History Source: Patient
Cardiac: Denies Chest Pain or Palpitations
Abdomen/GI: Denies Abdominal Pain, Nausea, Vomiting, Bloody Stools or Black Stools
Genitourinary: Reports No Symptoms; Denies Dysuria, Difficulty Voiding or Bleeding
[2024-06-01 09:42] LABS: Hematocrit 35.4 % (37.0-47.0); Hemoglobin 11.6 g/dL (12.0-16.0); Mean Corp Hgb Conc. 32.8 g/dL (33.0-37.0); Mean Corpuscular Hgb 30.2 pg (27.0-31.0); Mean Corpuscular Volume 92.2 fL (81.0-99.0); Mean Platelet Volume 10.2 fL (7.4-10.4); Platelet Count 254 10^3/uL (130-400); Red Blood Cell Count 3.84 10^6/uL (4.20-5.40); Red Cell Dist. Width 12.4 % (11.5-14.5); White Blood Cell Count 7.6 10^3/uL (4.8-10.8)
--- NOTE | 2024-06-01 10:04 | CM ---
Reviewed the chart notes and spoke with the patient at the beside. The patient resides with her spouse in a two story home with one step to enter. The patient reports no DME/VN/SNF in the past. The patient confirmed her pharmacy of choice is the
[facility]. CM continues to be available to patient/family and is monitoring medical plan for needs at discharge.
Plan: Discharge to home when medically stable. No anticipated needs.
[2024-06-01 11:04] LABS: Blood Urea Nitrogen 22 mg/dl (7-17); Calcium 9.6 mg/dl (8.4-10.2); Carbon Dioxide 23 mmol/L (22-30); Chloride 103 mmol/L (98-107); Estimated Creatinine Clearance 43 ml/min; Glucose 100 mg/dl (70-99); Potassium 4.5 mmol/L (3.5-5.1); Sodium 139 mmol/L (135-145); eGFR 45.19
[2024-06-01 12:20] VITALS: BP 130/70
--- NOTE | 2024-06-01 13:03 | W.PN.GI.CBS2 ---
Today's Communication / Plan
-
-Etiology of colitis possibly infectious v ischemic v inflammatory v other. With watershed pattern suggestive of possible ischemic colitis on CT but improved symptoms. On Unasyn with UTI as well.
-Currently low residue/low lactose
-She will need an eventual colonoscopy outpatient in 6-8 weeks for further evaluation
-Follow stool culture. Ciff, giardia, crypto negative
-Finish the course of Abx
-Monitor for recurrent diarrhea/bleeding
-ok for discharge from GI standpoint
Assessment / Plan
-
The pt is an 83 yo female with a PMH significant for HTN, prediabetes, HLD, lumbar disc disease/stenosis, CKD stage III, prior CCY, who presented to the ER with complaints of rectal bleeding found to have colitis on CT, concerning for possible
ischemic colitis with watershed pattern. Possibly infectious v inflammatory v other (malignancy). Her hgb was stable on admission, with mild drop 12.6--> 11.0--> 10.3. She has had no further bleeding. She was started on Unasyn. Also with E coli in
her urine. She was placed on liquid diet which she has been tolerating. Last colonoscopy in 2010. Stools negative for Cdiff, giardia, crypto. Stool culture is pending. Leukocytosis has resolved.
Problem list:
-abdominal pain, improved
-rectal bleeding; CT showing colitis distal transverse, splenic flexure, and descending colon
-leukocytosis, resolved
-UTI, UC + E coli.
-BOB on CKD
-mild normocytic anemia, likely 2/2 acute blood loss
-hyperkalemia, resolved
Other pertinent medical hx:
-HTN
-Prediabetes
-HLD
-DDD, lumbar stenosis
Recommendations:
-Etiology of colitis possibly infectious v ischemic v inflammatory v other. With watershed pattern suggestive of possible ischemic colitis on CT but improved symptoms. On Unasyn with UTI as well.
-Currently low residue/low lactose
-She will need an eventual colonoscopy outpatient in 6-8 weeks for further evaluation
-Follow stool culture. Ciff, giardia, crypto negative
-Finish the course of Abx
-Monitor for recurrent diarrhea/bleeding
-ok for discharge from GI standpoint
Subjective
Subjective
Date of Service: June 01, 2024
No abdominal pain, abdominal. Tolerating diet.
Objective
Data Reviewed
Laboratory Data:
Laboratory Results
06/01/24 08:32
06/01/24 08:32
Laboratory Results
PT 14.5 Sec (11.4-14.6) 05/29/24 11:33
INR 1.13 05/29/24 11:33
APTT 27.4 Sec (23.4-35.0) 05/29/24 11:33
Magnesium 1.9 mg/dl (1.6-2.3) 05/30/24 07:26
Total Bilirubin 0.7 mg/dl (0.2-1.3) 05/29/24 11:33
AST 22 U/L (14-36) 05/29/24 11:33
ALT < 30 U/L (0-35) 05/29/24 11:33
Alkaline Phosphatase 65 U/L (38-126) 05/29/24 11:33
Vital Signs and I&O:
Vital Signs
Temp Pulse Resp BP Pulse Ox
98.3 F 63 18 134/66 92
06/01/24 08:00 06/01/24 08:00 06/01/24 08:00 06/01/24 08:00 06/01/24 08:00
I&O
05/31/24 06/01/24 06/02/24
06:59 06:59 06:59
Intake Total 2280 / 2280 1040 / 1040
Balance 2280 / 2280 1040 / 1040
Physical Exam
Physical Exam
GI: Soft, Non Distended and Non Tender
== END 2024-06-01 13:46 | disposition home or self-care (01) | DRG 394 ==
LOC: 4 WEST ACU 20:18
PROVIDERS: Emergency Medicine; Student in an Organized Health Care Education/Training Program; ADMITTING PHYSICIAN Internal Medicine; ATTENDING PHYSICIAN Hospitalist; CONSULT PHYSICIAN Internal Medicine Gastroenterology; EMERGENCY PHYSICIAN Emergency Medicine; FAMILY PHYSICIAN Family Medicine
DX: K55.9 Vascular disorder of intestine, unspecified (principal); D62 Acute posthemorrhagic anemia; N17.9 Acute kidney failure, unspecified; N39.0 Urinary tract infection, site not specified; Z68.41 Body mass index [BMI] 40.0-44.9, adult; I10 Essential (primary) hypertension; D72.829 Elevated white blood cell count, unspecified; R31.9 Hematuria, unspecified; I12.9 Hypertensive chronic kidney disease with stage 1 through stage 4 chronic kidney disease, or unspecified chronic kidney disease; N18.31 Chronic kidney disease, stage 3a; R73.03 Prediabetes; E78.00 Pure hypercholesterolemia, unspecified; E87.5 Hyperkalemia; B96.20 Unspecified Escherichia coli [E. coli] as the cause of diseases classified elsewhere; E66.9 Obesity, unspecified; Z86.010 Personal history of colon polyps; Z94.7 Corneal transplant status
CPT/HCPCS: 74176; 80048; 80053; 81003; 81015; 82962; 83036; 83735; 85025; 85027; 85610; 85730; 86850; 86900; 86901; 87040; 87045; 87046; 87077; 87086; 87186; 87324; 87328; 87329; 87427; 87449; 96361; 96365; 99285

== ENCOUNTER → 2024-06-14 07:11 | Outpatient (REF) | payer OTHER, SELFPAY | LOC: MRI 3T 07:11 | PROVIDERS: ATTENDING PHYSICIAN Pain Medicine Interventional Pain Medicine; FAMILY PHYSICIAN Family Medicine | DX: M54.16 Radiculopathy, lumbar region (principal) | CPT/HCPCS: 72148 ==

== ENCOUNTER 2024-12-03 06:30 | Day surgery (SDC) | payer OTHER, SELFPAY ==
[2024-12-03 08:30] VITALS: BMI 45.7
[2024-12-03 08:45] VITALS: BP 140/51
[2024-12-03 09:00] VITALS: BMI 45.7
[2024-12-03 11:15] VITALS: BP 112/69
[2024-12-03 11:30] VITALS: BP 101/59
== END 2024-12-03 11:40 | disposition home or self-care (01) ==
LOC: GI 06:30
PROVIDERS: ATTENDING PHYSICIAN Internal Medicine Gastroenterology
DX: R93.3 Abnormal findings on diagnostic imaging of other parts of digestive tract (principal); Q43.8 Other specified congenital malformations of intestine
CPT/HCPCS: 45380; 88305